=== PATIENT | male | born 1995 | race Caucasian/White ===

== ENCOUNTER 2022-03-04 14:34 | Emergency (ER) | payer SELFPAY ==
--- NOTE | 2022-03-04 15:21 | NUR ---
PATIENT LEFT WITHOUT BEING SEEN BY DR. JACOB. NO FURTHER CARE PROVIDED FOR PATIENT.
--- NOTE | 2022-03-04 15:21 | NUR ---
SEVERINO HUDSON IN ER ADMITTING, PT LEFT WITHOUT BEING SEEN AT 1521.
--- NOTE | 2022-03-04 15:24 | NUR ---
NO ANSWER IN LOBBY OR OUTSIDE SURROUNDING AREA.
== END 2022-03-04 15:21 | disposition left against medical advice (07) ==
LOC: MED 14:34
DX: S61.419A Laceration without foreign body of unspecified hand, initial encounter (principal); Z53.21 Procedure and treatment not carried out due to patient leaving prior to being seen by health care provider; X58.XXXA Exposure to other specified factors, initial encounter; Y93.89 Activity, other specified; Y92.89 Other specified places as the place of occurrence of the external cause; Y99.8 Other external cause status